=== PATIENT | female | born 1960 | race Caucasian/White ===

== ENCOUNTER 2018-02-17 11:28 | Emergency (ER) | payer BC, OTHER ==
[2018-02-17 11:47] VITALS: BP 116/78
--- NOTE | 2018-02-17 12:26 | RAD ---
Indication: LEFT ankle and foot pain following rolling injury last night. Comparison: No relevant prior exams available on the [facility] PACS for comparison. Technique: AP, mortise, and lateral views LEFT ankle. AP, lateral, and oblique views LEFT foot. Report: Normal articular alignment at the ankle and foot. Small bone fragment dorsal to the head of the talus may represent an acute capsular avulsion fracture. No additional findings suspicious for fracture at the ankle and foot. Small os tibiale externum accessory ossicles. Mild osteophytosis at the talocrural joint. Small talocrural joint effusion. Mild soft tissue swelling over the anterior aspect of the ankle and lateral malleolus. IMPRESSION: Small bone fragment dorsal to the head of the talus may represent an acute capsular avulsion fracture related to the talocrural or talonavicular articulations. Small talocrural joint effusion. Mild osteoarthritis.
--- NOTE | 2018-02-17 12:26 | RAD ---
Indication: LEFT ankle and foot pain following rolling injury last night. Comparison: No relevant prior exams available on the [facility] PACS for comparison. Technique: AP, mortise, and lateral views LEFT ankle. AP, lateral, and oblique views LEFT foot. Report: Normal articular alignment at the ankle and foot. Small bone fragment dorsal to the head of the talus may represent an acute capsular avulsion fracture. No additional findings suspicious for fracture at the ankle and foot. Small os tibiale externum accessory ossicles. Mild osteophytosis at the talocrural joint. Small talocrural joint effusion. Mild soft tissue swelling over the anterior aspect of the ankle and lateral malleolus. IMPRESSION: Small bone fragment dorsal to the head of the talus may represent an acute capsular avulsion fracture related to the talocrural or talonavicular articulations. Small talocrural joint effusion. Mild osteoarthritis.
--- NOTE | 2018-02-17 12:53 | UC ---
Lower Extremity/Ankle HPI - HPI Summary HPI Summary: 57 yo WF c/o left ankle and foot pain after injuring it while coming off a step , thinks she twisted it and c/o left ankle swelling and dorsal foot pain - History of Current Complaint Chief Complaint: UCLowerExtremity Stated Complaint: ANKLE INJURY Time Seen by Provider: 02/17/18 11:57 Pain Intensity: 6 - Risk Factors Gout Risk Factors: Negative - Allergies/Home Medications Allergies/Adverse Reactions: Allergies Allergy/AdvReac Type Severity Reaction Status Date / Time Penicillins Allergy Rash Verified 02/17/18 11:47 Sulfa (Sulfonamide Allergy Rash Verified 02/17/18 11:47 Antibiotics) Home Medications: Home Medications Zolpidem Tartrate [Ambien] 5 mg PO 02/17/18 [History] PMH/Surg Hx/FS Hx/Imm Hx - Additional Past Medical History Additional PMH: none Previously Healthy: Yes - Surgical History Surgical History: Yes Surgery Procedure, Year, and Place: left hand, - Social History Alcohol Use: Occasionally Substance Use Type: None Smoking Status (MU): Never Smoked Tobacco Review of Systems Constitutional: Negative Skin: Negative Eyes: Negative ENT: Negative Respiratory: Negative Cardiovascular: Negative Gastrointestinal: Negative Genitourinary: Negative Motor: Negative Neurovascular: Negative Musculoskeletal: Other: - left ankle or foot injury Neurological: Negative Psychological: Negative All Other Systems Reviewed And Are Negative: Yes Physical Exam Triage Information Reviewed: Yes Appearance: Well-Appearing Vital Signs: Initial Vital Signs Temp 36.3 C 02/17/18 11:41 Pulse 66 02/17/18 11:41 Resp 18 02/17/18 11:41 BP 116/78 02/17/18 11:41 Pulse Ox 99 02/17/18 11:41 Eye Exam: Normal ENT Exam: Normal Dental Exam: Normal Neck exam: Normal Neck: Positive: 1 Respiratory Exam: Normal Cardiovascular Exam: Normal Abdominal Exam: Normal Musculoskeletal: Positive: Strength Limited @, ROM Limited @, Other: - left lateral mall swelling > medial malleous, mild TTP prox dorsal foot and inferior portion of B/L malleoli NO bony tenderness noted, NVI Neurological Exam: Normal Psychological Exam: Normal Skin Exam: Normal Lower Extremity Course/Dx - Course Course Of Treatment: ankle and foot XR- no ankle fx, "Small bone fragment dorsal to the head of the talus may represent an acutecapsular avulsion fracture related to the talocrural or talonavicular articulations". VAUGHN haider, advised Ortho f/u for acute avulsion fx - Differential Dx/Diagnosis Provider Diagnoses: left foot avulsion fx (closed). Left Ankle sprain Discharge - Sign-Out/Discharge Documenting (check all that apply): Discharge/Admit/Transfer - Discharge Plan Condition: Stable Disposition: HOME Patient Education Materials: Ankle Sprain (ED), Avulsion Fracture (ED) Referrals: Carole Red MD [Medical Doctor] - - Billing Disposition and Condition Condition: STABLE Disposition: HOME
== END 2018-02-17 13:09 | disposition home or self-care (01) ==
LOC: UCEAST 11:28
DX: S93.402A Sprain of unspecified ligament of left ankle, initial encounter (principal); S99.922A Unspecified injury of left foot, initial encounter; X50.1XXA Overexertion from prolonged static or awkward postures, initial encounter; Y93.9 Activity, unspecified; Y92.9 Unspecified place or not applicable; Z88.0 Allergy status to penicillin; Z88.2 Allergy status to sulfonamides
CPT/HCPCS: 99211; G0463